=== PATIENT | male | born 1955 | race Caucasian/White ===

== ENCOUNTER 2020-10-05 07:10 | Observation (INO) | payer MEDICARE ==
[~2020-10-05] VITALS: Ht 172.7 cm; Wt 85.4 kg
[~2020-10-05 07:10] MED LIST: ATOR10TA9 PO; METF10007 PO; OMEP20TA62 PO; TACR1CAP5 PO; TAMS-11 PO
[2020-10-05] MEDS ORDERED: BUPIVACAINE/PF 0.5% ONE (07:22)
[2020-10-05] MEDS ORDERED: EPINEPHRINE 1 MG/ML, 1ML ONE (07:22)
[2020-10-05 07:44] VITALS: BP 136/80
[2020-10-05] MEDS ORDERED: CHLORHEXIDINE 15 ML UDC PO ONE (08:00)
[2020-10-05] MEDS ORDERED: LACTATED RINGERS 1,000 ML IV SCH ×2 (08:00→17:00)
[2020-10-05] MEDS ORDERED: MIDAZOLAM 1 MG/ML, 2ML ONE (08:28)
[2020-10-05] MEDS ORDERED: FENTANYL PF 100 MCG/2ML ONE ×2 (08:28→11:14)
[2020-10-05] MEDS ORDERED: NEOSTIGMINE 1 MG/ML, 10ML ONE (08:31)
[2020-10-05] MEDS ORDERED: GLYCOPYRROLATE 0.2MG/1ML, 5ML ONE (08:31)
[2020-10-05] MEDS ORDERED: ONDANSETRON 2MG/ML, 2ML ONE (08:31)
[2020-10-05] MEDS ORDERED: ROCURONIUM 10MG/ML,5ML ONE (08:31)
[2020-10-05] MEDS ORDERED: SUCCINYLCHOLINE 20 MG/ML, 10ML ONE (08:31)
[2020-10-05] MEDS ORDERED: DEXAMETHASONE 4 MG/ML, 1ML ONE (08:31)
[2020-10-05] MEDS ORDERED: CEFAZOLIN 1,000 MG ONE (08:31)
[2020-10-05] MEDS ORDERED: PROPOFOL 10 MG/ML, 20ML ONE (08:31)
[2020-10-05 08:34] LABS: BASOPHILS % (AUTO) 0 % (0-1); EOSINOPHILS % (AUTO) 1 % (1-7); LYMPHOCYTES % (AUTO) 20 % (22-44); MEAN CORPUSCULAR HEMOGLOBIN 27.8 pg (27.5-34.5); MEAN CORPUSCULAR HGB CONC 33.7 g/dL (33.2-36.2); MEAN PLATELET VOLUME 7.9 fL (7.4-10.4); MONOCYTES % (AUTO) 11 % (2-9); NEUTROPHILS % (AUTO) 69 % (42-75); PLATELET COUNT 143 x10^3/uL (130-400); RED BLOOD COUNT 4.74 x10^6/uL (4.38-5.82); RED CELL DISTRIBUTION WIDTH 13.6 % (9.4-14.8)
[2020-10-05 08:54] LABS: INTERNATIONAL NORMALIZED RATIO 1.1 (0.93-1.1); PROTHROMBIN TIME 11.7 Seconds (9.6-11.5)
[2020-10-05] MEDS ORDERED: ACETAMINOPHEN 325 MG TABLET PO PRN (09:00)
[2020-10-05] MEDS ORDERED: KETOROLAC 30 MG/1 ML IVPush PRN ×2 (09:00→17:00)
[2020-10-05] MEDS ORDERED: MEPERIDINE/PF 25MG/0.5ML IVPush PRN (09:00)
[2020-10-05] MEDS ORDERED: PROMETHAZINE 25 MG/ML, 1ML IVPush PRN (09:00)
[2020-10-05] MEDS ORDERED: ONDANSETRON 2MG/ML, 2ML IVPush PRN ×3 (09:00→19:30)
[2020-10-05] MEDS ORDERED: HYDROcodone/APAP 7.5-325MG/15ML UDC PO PRN (09:00)
[2020-10-05 09:04] LABS: ALBUMIN 3.9 g/dL (3.4-5.0); ANION GAP 6 mmol/L (5-15); CALCIUM 8.9 mg/dL (8.5-10.1); CHLORIDE 112 mmol/L (98-107)
[2020-10-05 09:08] LABS: ALANINE AMINOTRANSFERASE 70 U/L (12-78); ALKALINE PHOSPHATASE 123 U/L (45-117); BILIRUBIN,TOTAL 0.6 mg/dL (0.2-1.0); CREATININE 1.19 mg/dL (0.7-1.3); TOTAL PROTEIN 7.1 g/dL (6.4-8.2)
[2020-10-05] MEDS ORDERED: OXYcodone 5 MG/5 ML ORAL.SOL UDC ONE ×3 (11:15→17:05)
[2020-10-05] MEDS: FENTANYL PF 100 MCG/2ML IV PRN ×2 (11:16→11:25)
[2020-10-05] MEDS: OXYcodone 5 MG/5 ML ORAL.SOL UDC PO PRN ×2 (11:32→12:49)
[2020-10-05] MEDS ORDERED: GLYCOPYRROLATE 0.4 MG/2 ML, 2ML ONE (11:55)
[2020-10-05] MEDS ORDERED: HYDROmorphone 2 MG/ML, 1ML ONE ×3 (11:59→15:19)
[2020-10-05] MEDS ORDERED: GLYCOPYRROLATE 0.2MG/1ML, 5ML IVPush ONE (12:00)
[2020-10-05] MEDS: HYDROmorphone 1 MG/ML, 1ML INJ IVPush PRN ×5 (12:06→15:20)
[2020-10-05] MEDS ORDERED: DIPHENHYDRAMINE 50 MG/ML, 1ML IVPush PRN (17:00)
[2020-10-05] MEDS ORDERED: OXYcodone 5 MG/5 ML ORAL.SOL UDC PO PRN ×2 (17:00→19:00)
[2020-10-05] MEDS ORDERED: HYDROmorphone 2 MG/ML, 1ML IVPush PRN (17:00)
[2020-10-05] MEDS ORDERED: OMEPRAZOLE 20 MG CAPSULE.DR PO PRN (17:30)
[2020-10-05 19:00] VITALS: BP 130/70
[2020-10-05] MEDS: LACTATED RINGERS 1,000 ML IV SCH (19:00)
[2020-10-05] MEDS ORDERED: HYDROmorphone 2 MG/ML, 1ML IV PRN (19:30)
[2020-10-05] MEDS: TACROLIMUS 1 MG CAPSULE PO SCH (20:07)
[2020-10-05] MEDS: KETOROLAC 30 MG/1 ML IV PRN (20:07)
[2020-10-06 01:34] VITALS: BP 123/66
[2020-10-06] MEDS: KETOROLAC 30 MG/1 ML IV PRN ×2 (04:33→10:08)
[2020-10-06] MEDS: LACTATED RINGERS 1,000 ML IV SCH (07:30)
[2020-10-06 07:54] VITALS: BP 135/71
[2020-10-06] MEDS ORDERED: metFORMIN 500 MG TABLET PO SCH (08:00)
[2020-10-06] MEDS ORDERED: TAMSULOSIN 0.4 MG CAP.ER.24H PO SCH (09:00)
[2020-10-06] MEDS: TACROLIMUS 1 MG CAPSULE PO SCH (09:21)
[2020-10-06 14:06] VITALS: BP 130/71
== END 2020-10-06 16:20 | disposition home or self-care (01) ==
LOC: OR 07:10 → ORIP 16:46 → 4NE 18:00
PROVIDERS: ADMIT Surgery; ATTEND Surgery
DX: K43.2 Incisional hernia without obstruction or gangrene (principal); K66.0 Peritoneal adhesions (postprocedural) (postinfection); E11.9 Type 2 diabetes mellitus without complications; Z94.4 Liver transplant status; Z79.84 Long term (current) use of oral hypoglycemic drugs; Z79.899 Other long term (current) drug therapy
CPT/HCPCS: 36415; 49654; 80053; 82962; 85025; 85610; 85730; 93005; 96361; 96374; 96376; C1781; G0378; J0171; J0330; J0690; J1100; J1170; J1885; J2250; J2405; J2704; J2710; J3010; J7120; J7507; S0020